=== PATIENT | male | born 1965 | race African-American/Black ===

== ENCOUNTER 2016-11-28 21:55 | Emergency (ER) | payer OTHER ==
[~2016-11-28] VITALS: Ht 185.4 cm; Wt 102.1 kg
[~2016-11-28 21:55] MED LIST: IBUPROFEN600 M1 PO; KEFLEX500 MG ORAL
[2016-11-28 22:22] VITALS: BP 174/109
[2016-11-28] MEDS ORDERED: IBUPROFEN600 MG ORAL (22:42)
[2016-11-28] MEDS ORDERED: AUGMENTIN 875-1 EAC1 ORAL (22:42)
--- NOTE | 2016-11-28 22:42 | Emergency Room Report ---
History of Present Illness General Chief Complaint: Skin Rash/Abscess Source: Patient Present Illness HPI This is a 51-year-old male with history hypertension. He presents with chief complaint of dental pain and facial swelling. He said there was some mild pain for last couple days but today her side of face swollen. No fever or chills. Pain is 7/10. No nausea no vomiting. Never had this problem before. Allergies: Coded Allergies: No Known Allergies (Unverified , 12/08/14) Patient History Past Medical History: see triage record, old chart reviewed, HTN Past Surgical History: other Pertinent Family History: none Social History: Reports: smoking Immunizations: other Reviewed Nursing Documentation: PMH: Agreed, PSxH: Agreed Nursing Documentation-PMH Hx Hypertension: Yes Review of Systems Eye: Denies: blurred vision, eye pain ENT: Denies: ear pain, nose congestion, throat swelling Respiratory: Denies: cough, shortness of breath Cardiovascular: Denies: chest pain, palpitations Gastrointestinal: Denies: abdominal pain, diarrhea, nausea, vomiting Musculoskeletal: Denies: back pain, joint pain Skin: Denies: rash Neurological: Denies: headache, numbness Endocrine: Denies: increased thirst, increased urine Hematologic/Lymphatic: Denies: easy bruising All Other Systems: negative except mentioned in HPI Physical Exam Vital Signs Date Time Temp Pulse Resp B/P Pulse Ox O2 Delivery O2 Flow Rate FiO2 11/28/16 22:15 98.2 90 18 174/109 96 Room Air vitals with hypertension Sp02 EP Interpretation: reviewed, normal General Appearance: well appearing, no apparent distress, alert Head: normocephalic, atraumatic Eyes: bilateral eye EOMI, bilateral eye PERRL ENT: hearing grossly normal, normal pharynx, other - Poor dentition with dental decay. Abscess to the right upper premolar and first molar. No trismus. Neck: full range of motion, supple, no meningismus Respiratory: chest non-tender, lungs clear, normal breath sounds Cardiovascular #1: regular rate, rhythm, no murmur Gastrointestinal: normal bowel sounds, non tender, no mass, no organomegaly, no bruit, non-distended Musculoskeletal: back normal, gait/station normal, normal range of motion Psychiatric: mood/affect normal Skin: warm/dry Procedures Incision and Drainage Incision and Drainage : Consent: Verbal Site: Dental Blade Size: 11 Anesthesia: 1% Lidocaine Volume Anesthetic (ccs): 1 Patient Tolerated: Well Complications: None Progress local anesthetic 1% lidocaine. Injected about 1 mL. using 11 blade scalpel, I made a 1 cm incision over the fluctuant area. there was a moderate amount of pus expressed. Patient tolerated procedure without a problem. Medical Decision Making Diagnostic Impression: Primary Impression: Dental abscess Additional Impression: Hypertension Qualified Codes: I10 - Essential (primary) hypertension ER Course Patient with a dental abscess. Blood pressure is elevated. No evidence of deep infection. He felt better now. Questionable drug abuse based on the appearance of his dentition. Last Vital Signs Date Time Temp Pulse Resp B/P Pulse Ox O2 Delivery O2 Flow Rate FiO2 11/28/16 22:15 98.2 90 18 174/109 96 Room Air Status: improved Disposition: HOME, SELF-CARE Condition: Stable Scripts Ibuprofen* (MOTRIN*) 600 Mg Tablet 600 MG ORAL THREE TIMES A DAY, #30 TAB 0 Refills Prov: TUAN KEY M.D. 11/28/16 Amoxicillin/Potassium Clav 875-125* (AUGMENTIN 875-125 TABLET*) 1 Each Tablet 1 TAB ORAL TWICE A DAY, #14 TAB Prov: TUAN KEY M.D. 11/28/16 Additional Instructions: See dentist MEHDI. Return for fever or increasing swelling. TUAN KEY M.D. Nov 28, 2016 22:42
[2016-11-28] MEDS ORDERED: Augmentin 875mg Tab ORAL ONE (22:45)
[2016-11-28 22:50] VITALS: BP 174/109
== END 2016-11-28 23:00 | disposition home or self-care (01) ==
LOC: EMR 22:52
DX: K04.7 Periapical abscess without sinus (principal); I10 Essential (primary) hypertension; F17.200 Nicotine dependence, unspecified, uncomplicated
CPT/HCPCS: 10060

== ENCOUNTER 2018-09-10 04:21 | Emergency (ER) | payer OTHER ==
[~2018-09-10] VITALS: Ht 185.4 cm; Wt 106.6 kg
[~2018-09-10 04:21] MED LIST changes: +AUGMENTIN 875-1 EAC1 ORAL; +IBUPROFEN600 MG ORAL
[2018-09-10] MEDS ORDERED: UNOBMED (04:30)
[2018-09-10 04:36] VITALS: BP 146/82
[2018-09-10] MEDS ORDERED: Tetanus/Diptheria/Pertussis IM ONE (04:45)
--- NOTE | 2018-09-10 05:13 | Diagnostic Imaging Report ---
EXAM: CT Head Without Intravenous Contrast CLINICAL HISTORY: H/A TECHNIQUE: Axial computed tomography images of the head/brain without intravenous contrast. CTDI is 70.53 mGy and DLP is 1432 mGy-cm. One or more of the following dose reduction techniques were used: automated exposure control, adjustment of the mA and/or kV according to patient size, use of iterative reconstruction technique. COMPARISON: 04/21/[address] FINDINGS: Brain: Unremarkable. No hemorrhage. No significant white matter disease. No edema. Ventricles: Unremarkable. No ventriculomegaly. Bones/joints: Unremarkable. No acute fracture. Soft tissues: Unremarkable. Sinuses: Right sphenoid sinus mucosal thickening. Mastoid air cells: Unremarkable as visualized. No mastoid effusion. IMPRESSION: No acute findings.
[2018-09-10] MEDS ORDERED: Lidocaine 1% Plain 30 ml INJ ONE (05:30)
[2018-09-10] MEDS ORDERED: Bacitracin Oint UD TOPIC ONE ×2 (05:43→05:45)
[2018-09-10] MEDS ORDERED: BACITRACIN15 GM TOPIC (05:46)
[2018-09-10 05:49] VITALS: BP 146/82
--- NOTE | 2018-09-10 21:58 | Emergency Room Report ---
History of Present Illness General Chief Complaint: Laceration Source: Patient Present Illness HPI 53-year-old male presents ED for evaluation. Patient states that he fell and hit his head this morning with possible loss of consciousness. States that he was very sleepy and fell in the kitchen hitting his head on the counter. Notes laceration above his left eyebrow. Tetanus unknown. Pain is dull, 6 out of 10 , nonradiating. Denies photophobia or blurry vision. Denies neck pain. Denies any other injuries. No other aggravating relieving factors. Denies any other associated symptoms Allergies: Coded Allergies: No Known Allergies (Unverified , 12/08/14) Patient History Past Medical History: HTN Past Surgical History: none Pertinent Family History: none Social History: Denies: smoking, alcohol use, drug use Immunizations: UTD Reviewed Nursing Documentation: PMH: Agreed; PSxH: Agreed Nursing Documentation-PMH Past Medical History: No History, Except For Hx Hypertension: Yes Review of Systems All Other Systems: negative except mentioned in HPI Physical Exam Vital Signs Date Time Temp Pulse Resp B/P (MAP) Pulse Ox O2 Delivery O2 Flow Rate FiO2 09/10/18 04:27 98.2 115 18 93 09/10/18 04:36 146/82 Sp02 EP Interpretation: reviewed, normal General Appearance: no apparent distress, alert, GCS 15, non-toxic Head: normocephalic, other - 2cm laceration above L eyebrow Eyes: bilateral eye normal inspection, bilateral eye PERRL, bilateral eye EOMI ENT: hearing grossly normal, normal pharynx, no angioedema, normal voice Neck: normal inspection Respiratory: normal inspection Cardiovascular #1: normal inspection Gastrointestinal: normal inspection Rectal: deferred Genitourinary: no CVA tenderness Musculoskeletal: normal inspection Neurologic: alert, oriented x3, responsive, front desk team member III-XII nml as tested, motor strength/tone normal, sensory intact, speech normal Psychiatric: normal inspection Skin: laceration - 2cm laceration above L eyebrow Lymphatic: normal inspection Procedures Laceration/Wound Repair Laceration/Wound Repair : Consent: Verbal Wound Location: head Wound's Depth, Shape: linear Wound Explored: clean Betadine Prep?: Yes Anesthesia: 1% Lidocaine Wound Debrided: minimal Wound Repaired With: sutures Suture Size/Type: 6:0, nylon Layer Closure?: No Sterile Dressing Applied?: Yes Splint Applied?: No Patient Tolerated: Well Complications: None Medical Decision Making Diagnostic Impression: Primary Impression: Head injury Qualified Codes: S09.90XA - Unspecified injury of head, initial encounter Additional Impression: Laceration ER Course Hospital Course 53 yo M presents to ED c/o laceration above L eyebrow. s/p fall with head injury Clinical course Patient placed on stretcher. After initial history and physical I ordered tetanus shot and CT head. CT head unremarkable Anesthesia provided with lidocaine. Laceration repaired w/o complication. Dressing applied. Discussed findings with patient. Safe for discharge with close outpatient follow-up. Wound care instructions given. Does not have a PMD. We'll provide referrals Diagnosis - head injury, laceration Stable and discharged to home with prescription for bacitracin. wound Care instructions given. Followup with PMD in 5-7 days for suture removal. Return to ED if any signs of infection develop CT/MRI/US Diagnostic Results CT/MRI/US Diagnostic Results : Imaging Test Ordered: CT Head Impression no acute process Last Vital Signs Date Time Temp Pulse Resp B/P (MAP) Pulse Ox O2 Delivery O2 Flow Rate FiO2 09/10/18 05:49 98.2 112 18 146/82 93 Status: improved Disposition: HOME, SELF-CARE Condition: Stable Scripts Bacitracin (Bacitracin) 28.4 Gm Oint...g. 1 APPLIC TOPIC THREE TIMES A DAY, #28.4 GM Prov: Sravan Dong MD 09/10/18 Referrals: [facility] Patient Instructions: Laceration Care, Adult Additional Instructions: return to ED in 5-7 days for suture removal Sravan Dong MD September 10, 2018 21:58
== END 2018-09-10 05:50 | disposition home or self-care (01) ==
LOC: EMR 04:53
DX: S01.112A Laceration without foreign body of left eyelid and periocular area, initial encounter (principal); I10 Essential (primary) hypertension; Z23 Encounter for immunization; W18.30XA Fall on same level, unspecified, initial encounter; Y92.000 Kitchen of unspecified non-institutional (private) residence as the place of occurrence of the external cause
CPT/HCPCS: 12011; 70450; 90471; 90715; 99284; J2001; Z7502

== ENCOUNTER 2019-04-23 13:30 | Emergency (ER) | payer OTHER ==
[~2019-04-23] VITALS: Ht 185.4 cm; Wt 115.2 kg
[~2019-04-23 13:30] MED LIST changes: +BACITRACIN15 GM TOPIC; +UNOBMED
[2019-04-23] MEDS ORDERED: [UNRECOGNIZED DRUG - REMARK] ORAL (13:40)
[2019-04-23] MEDS: Albuterol/Ipratropium 3ml neb HHN SCH ×4 (13:59→14:45)
[2019-04-23 14:23] LABS: BASOPHILS % (AUTO) 2.1 % (0.0-2.0); HEMATOCRIT 42.1 % (42.0-52.0); LYMPHOCYTES % (AUTO) 34.2 % (20.0-45.0); MEAN CORPUSCULAR VOLUME 86 FL (80-99); MONOCYTES % (AUTO) 12.7 % (1.0-10.0); PLATELET COUNT 271 K/UL (150-450); RED BLOOD COUNT 4.88 M/UL (4.70-6.10); RED CELL DISTRIBUTION WIDTH 12.3 % (11.6-14.8); WHITE BLOOD COUNT 7.6 K/UL (4.8-10.8)
[2019-04-23 14:29] VITALS: BP 131/86
[2019-04-23 14:30] LABS: INR 0.9 (0.9-1.1)
[2019-04-23 14:37] LABS: ANION GAP 10 mmol/L (5-15); BLOOD UREA NITROGEN 16 mg/dL (7-18); CARBON DIOXIDE 28 MMOL/L (21-32); CHLORIDE 103 MMOL/L (98-107); CREATININE 1.3 MG/DL (0.55-1.30); POTASSIUM 3.7 MMOL/L (3.5-5.1); SODIUM 141 MMOL/L (136-145)
[2019-04-23 14:48] LABS: ALANINE AMINOTRANSFERASE 32 U/L (12-78); ALBUMIN/GLOBULIN RATIO 1.3 (1.0-2.7); ALKALINE PHOSPHATASE 108 U/L (46-116); ASPARTATE AMINO TRANSFERASE 27 U/L (15-37); BILIRUBIN,TOTAL 0.7 MG/DL (0.2-1.0)
--- NOTE | 2019-04-23 15:11 | Emergency Room Report ---
History of Present Illness General Chief Complaint: Upper Respiratory Illness Source: Patient Present Illness HPI 54-year-old male with history of hypertension currently taking an unknown antihypertensive medication, heavy tobacco smoker, and alcohol consumption on daily basis here complaining of several months of shortness of breath and 1 week of worsening symptoms. 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 Complains of cough and congestion as well as wheezing and difficulty breathing. Denies abdominal pain, nausea vomiting, headache, dizziness, chest pain, pain radiation. Denies palpitation. Denies any history of cardiomegaly or CHF. Denies calf tenderness, recent traveling via airplane for prolonged hours, history of cancer, no other associated symptoms. Has not taken medication for symptom relief. Allergies: Coded Allergies: No Known Allergies (Unverified , 09/30/18) Patient History Past Medical History: see triage record Past Surgical History: none Pertinent Family History: none Social History: Reports: smoking - tobacco, alcohol use - alcohol daily Immunizations: UTD Reviewed Nursing Documentation: PMH: Agreed; PSxH: Agreed Nursing Documentation-PMH Past Medical History: No History, Except For Hx Hypertension: Yes Review of Systems All Other Systems: negative except mentioned in HPI Physical Exam Vital Signs Date Time Temp Pulse Resp B/P (MAP) Pulse Ox O2 Delivery O2 Flow Rate FiO2 04/23/19 13:35 97.9 86 15 131/86 (101) 93 Room Air 04/23/19 14:04 21 Sp02 EP Interpretation: reviewed, abnormal - Pulse ox 93% General Appearance: no apparent distress, alert, GCS 15, non-toxic Head: normocephalic, atraumatic Eyes: bilateral eye normal inspection, bilateral eye PERRL ENT: hearing grossly normal, normal pharynx, no angioedema, normal voice Neck: full range of motion, supple, supple/symm/no masses Respiratory: chest non-tender, no rhonchi, no respiratory distress, no retraction, crackles - Right and left left left lower lobe, speaking full sentences, wheezing - Diffuse wheezing Cardiovascular #1: regular rate, rhythm, no edema, no murmur Cardiovascular #2: 2+ carotid (R), 2+ carotid (L), 2+ radial (R), 2+ radial (L) , 2+ dorsalis pedis (R), 2+ dorsalis pedis (L) Gastrointestinal: normal bowel sounds, non tender, soft, non-distended, no guarding, no rebound Rectal: deferred Genitourinary: normal inspection, no CVA tenderness Musculoskeletal: back normal, normal range of motion, digits/nails normal, no calf tenderness Neurologic: alert, motor strength/tone normal, oriented x3, sensory intact, responsive, speech normal Psychiatric: normal inspection, judgement/insight normal Skin: no rash Lymphatic: no adenopathy Medical Decision Making PA Attestation Diagnosis and treatment plans were reviewed and discussed with my supervising physician Dr. Roque Diagnostic Impression: Primary Impression: Atypical pneumonia Additional Impression: Cardiomegaly ER Course 54-year-old male with history of hypertension currently taking an unknown antihypertensive medication, heavy tobacco smoker, and alcohol consumption on daily basis here complaining of several months of shortness of breath and 1 week of worsening symptoms. 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 Complains of cough and congestion as well as wheezing and difficulty breathing. Denies abdominal pain, nausea vomiting, headache, dizziness, chest pain, pain radiation. Denies palpitation. Denies any history of cardiomegaly or CHF. Denies calf tenderness, recent traveling via airplane for prolonged hours, history of cancer, no other associated symptoms. Has not taken medication for symptom relief. Ddx considered but are not limited to: bronchitis, PNA, URI viral, bacterial bronchitis, atypical pneumonia, CHF, cardiomegaly Vital signs: are WNL, pt. is afebrile H&PE are most consistent with: Atypical pneumonia, cardiomegaly ORDERS: Chest pain work-up, Augmentin, azithromycin, guaifenesin prednisone, albuterol, Lasix( as recommended by my supervising physician Dr. Roque) ED INTERVENTIONS:NS bolus, 3 treatments of albuterol ipratropium, prednisone DISCHARGE: At this time pt. is stable for d/c to home. Will provide printed patient care instructions, and any necessary prescriptions. Care plan and follow up instructions have been discussed with the patient prior to discharge. Patient to follow-up with primary care provider and lead ramp service man, if worsening symptoms return to emergency room. Also advised patient to stop drinking alcohol and tobacco smoke. EKG Diagnostic Results Rate: normal Rhythm: NSR ST Segments: no acute changes Other Impression No acute ST changes Chest X-Ray Diagnostic Results Chest X-Ray Diagnostic Results : Chest X-Ray Ordered: Yes # of Views/Limited/Complete: 1 View Indication: Shortness of Breath EP Interpretation: Yes HANS Xray: Interpretation reviewed, by supervising MD, and agrees with findings. Interpretation: other - LLL cosolidation, cardiomegaly Impression: Other - cardiomegaly, LLL consolidation Electronically Signed by: Mercy Morataya PA-C Last Vital Signs Date Time Temp Pulse Resp B/P (MAP) Pulse Ox O2 Delivery O2 Flow Rate FiO2 04/23/19 14:29 97.9 18 131/86 96 Room Air 21 04/23/19 14:05 88 86 Disposition: HOME, SELF-CARE Condition: Stable Scripts Guaifenesin* (GUAIFENESIN) 100 Mg/5 Ml Liquid 5 ML ORAL Q6H, #120 ML 0 Refills Prov: Mercy Paz 04/23/19 Furosemide* (LASIX*) 20 Mg Tablet 20 MG ORAL DAILY for 3 Days, #3 TAB Prov: Mercy Paz 04/23/19 Albuterol Sulfate (VENTOLIN HFA) 18 Gm Hfa.aer.ad 2 PUFFS INH EVERY 6 HOURS, #18 GM 0 Refills Prov: Mercy Paz 04/23/19 Prednisone* (PREDNISONE*) 20 Mg Tablet 40 MG ORAL DAILY for 5 Days, #10 TAB Prov: Mercy Paz 04/23/19 Amoxicillin/Potassium Clav 875-125* (AUGMENTIN 875-125 TABLET*) 1 Each Tablet 1 TAB ORAL TWICE A DAY for 10 Days, #20 TAB Prov: Mercy Paz 04/23/19 Azithromycin* (ZITHROMAX*) 250 Mg Tablet 250 MG ORAL DAILY, #6 TAB 0 Refills Take two tables once daily for 1 day, then one tablet once daily for 4 days. Prov: Mercy Paz 04/23/19 Referrals: NON PHYSICIAN (PCP) Patient Instructions: Community-Acquired Pneumonia, Adult, [id number] Additional Instructions: Follow-up with your primary care provider for referral to lead ramp service man regarding enlarged heart, avoid drinking alcohol, tobacco smoke. If worsening symptoms return to the emergency room Mercy Paz Apr 23, 2019 15:11
[2019-04-23] MEDS ORDERED: AUGMENTIN 875-1 EAC1 ORAL (15:13)
[2019-04-23] MEDS ORDERED: FUROSEMIDE20 M1 ORAL (15:13)
[2019-04-23] MEDS ORDERED: ZITHROMAX250 MG ORAL (15:13)
[2019-04-23] MEDS ORDERED: PREDNISONE20 MG ORAL (15:13)
[2019-04-23] MEDS ORDERED: GUAIFENESI100 MG/5 M ORAL (15:13)
[2019-04-23] MEDS ORDERED: VENTOLIN HFA18 GM INH (15:13)
[2019-04-23 15:25] VITALS: BP 129/85
--- NOTE | 2019-04-23 15:25 | NUR ---
ER DISCHARGE NOTE: Patient is cleared to be discharged per PA, pt is aox4, on room air, with stable vital signs. pt was given dc and prescription instructions, pt was able to verbalize understanding, pt id band and iv site removed without complications. pt is able to ambulate with steady gait. pt took all belongings and left with his family member.
[2019-04-23 15:26] LABS: APPEARANCE,URINE CLEAR; BILIRUBIN, URINE NEGATIVE (NEGATIVE); COLOR,URINE PALE YELLOW; GLUCOSE, URINE (UA) NEGATIVE (NEGATIVE); KETONES,URINE NEGATIVE (NEGATIVE); LEUKOCYTE ESTERASE ,URINE NEGATIVE (NEGATIVE); NITRITE,URINE NEGATIVE (NEGATIVE); PH,URINE 6.5 (4.5-8.0); PROTEIN,URINE NEGATIVE (NEGATIVE); UROBILINOGEN,URINE NORMAL MG/DL (0.0-1.0)
--- NOTE | 2019-04-24 08:33 | Diagnostic Imaging Report ---
Indication: Cough Technique: One view of the chest Comparison: 09/30/2018 Findings: Lungs and pleural spaces are clear. Heart size is normal. No significant interim change Impression: No acute process
== END 2019-04-23 15:25 | disposition home or self-care (01) ==
LOC: EMR 14:01
DX: J18.9 Pneumonia, unspecified organism (principal); I51.7 Cardiomegaly; I10 Essential (primary) hypertension; F17.200 Nicotine dependence, unspecified, uncomplicated
CPT/HCPCS: 36415; 71045; 80053; 80307; 81003; 83880; 84484; 85025; 85610; 85730; 93005; 96360; G0480; J7030; J7512; Z7502; 99284; J7620

== ENCOUNTER 2019-04-25 01:29 | Emergency (ER) | payer OTHER ==
[~2019-04-25] VITALS: Ht 185.4 cm; Wt 115.2 kg
[~2019-04-25 01:29] MED LIST changes: +FUROSEMIDE20 M1 ORAL; +GUAIFENESI100 MG/5 M ORAL; +PREDNISONE20 MG ORAL; +VENTOLIN HFA18 GM INH; +ZITHROMAX250 MG ORAL; +[UNRECOGNIZED DRUG - REMARK] ORAL
--- NOTE | 2019-04-25 01:43 | Emergency Room Report ---
History of Present Illness General Chief Complaint: Lower Extremity Injury Source: Patient Present Illness HPI Is a 54-year-old male with a history of previous left ankle surgery. He presents with left ankle pain and knee pain. He said he was running in the house and tripped and fell. He said he twisted his leg. He complained of left ankle and left knee pain. Onset was about 2 hours ago. Pain is localized to the medial aspect the knee and ankle. Pain is 9 out of 10. Unable to bear weight. Unable to walk. Better with rest. Worse with ambulation. No other injury. Did not hit his head. Did not pass out. Allergies: Coded Allergies: No Known Allergies (Unverified , 09/30/18) Patient History Past Medical History: see triage record, old chart reviewed, HTN Past Surgical History: other Pertinent Family History: none Social History: Denies: smoking Immunizations: other Reviewed Nursing Documentation: PMH: Agreed; PSxH: Agreed Nursing Documentation-PMH Hx Hypertension: Yes Review of Systems Eye: Denies: eye pain, blurred vision ENT: Denies: ear pain, nose congestion, throat swelling Respiratory: Denies: cough, shortness of breath Cardiovascular: Denies: chest pain, palpitations Gastrointestinal: Denies: abdominal pain, diarrhea, nausea, vomiting Musculoskeletal: Reports: joint pain; Denies: back pain Skin: Denies: rash Neurological: Denies: headache, numbness Endocrine: Denies: increased thirst, increased urine Hematologic/Lymphatic: Denies: easy bruising All Other Systems: negative except mentioned in HPI Physical Exam Vital Signs Date Time Temp Pulse Resp B/P (MAP) Pulse Ox O2 Delivery O2 Flow Rate FiO2 04/25/19 01:36 97.9 90 18 142/88 (106) 99 Room Air Vitals with high blood pressure Sp02 EP Interpretation: reviewed, normal General Appearance: well appearing, no apparent distress, alert Head: normocephalic, atraumatic Eyes: bilateral eye PERRL, bilateral eye EOMI ENT: hearing grossly normal, normal pharynx Neck: full range of motion, supple, no meningismus Respiratory: chest non-tender, lungs clear, normal breath sounds Cardiovascular #1: regular rate, rhythm, no murmur Gastrointestinal: normal bowel sounds, non tender, no mass, no organomegaly, no bruit, non-distended Musculoskeletal: back normal, normal range of motion, gait/station normal, tender - Left lower extremity: There is tenderness to the medial aspect of the left knee and left ankle. Knee is stable. Ankle stable. No deformity. Psychiatric: mood/affect normal Procedures Splinting Splinting : Consent: Verbal Location: ankle Pre-Made Type: SHEEBA wrap Pre-Proc Neuro Vasc Exam: normal Post-Proc Neuro Vasc Exam: normal Patient Tolerated: Well Complications: None Medical Decision Making Diagnostic Impression: Primary Impression: Left ankle sprain Qualified Codes: S93.402A - Sprain of unspecified ligament of left ankle, initial encounter Additional Impression: Left knee sprain Qualified Codes: S83.412A - Sprain of medial collateral ligament of left knee , initial encounter ER Course Patient presents with ankle and knee sprain status post fall. No new fracture. Will discharge home. Other X-Ray Diagnostic Results Other X-Ray Diagnostic Results #1: X-Ray ordered: left ankle xrays # of Views/Limited Vs Complete: 3 View Indication: Pain EP Interpretation: Yes Interpretation: no dislocation, no soft tissue swelling, no fractures, other - s/p hardware Impression: No acute disease Electronically Signed by: Alexy Gray MD Other X-Ray Diagnostic Results #2: X-Ray ordered: Left knee x-rays # of Views/Limited Vs Complete: 4 View Indication: Pain EP Interpretation: Yes Interpretation: no dislocation, no soft tissue swelling, no fractures Impression: No acute disease Electronically Signed by: Alexy Gray MD Last Vital Signs Date Time Temp Pulse Resp B/P (MAP) Pulse Ox O2 Delivery O2 Flow Rate FiO2 04/25/19 01:36 97.9 90 18 142/88 (106) 99 Room Air Status: improved Disposition: HOME, SELF-CARE Condition: Stable Scripts Ibuprofen* (MOTRIN*) 600 Mg Tablet 600 MG ORAL THREE TIMES A DAY, #30 TAB 0 Refills Prov: Alexy Gray MD 04/25/19 Referrals: [facility],REFERR[facility] (PCP) Patient Instructions: Ankle Sprain Additional Instructions: Elevate ankle. Ice pack to the area. Use crutches as needed. Follow-up with your doctor in 7 days. Return if worse. Alexy Gray MD Apr 25, 2019 01:43
[2019-04-25] MEDS ORDERED: HYDROcodone/Acetamin 5/325 tab ORAL ONE (01:45)
[2019-04-25] MEDS ORDERED: IBUPROFEN600 MG ORAL (02:30)
[2019-04-25 02:32] VITALS: BP 140/88
--- NOTE | 2019-04-25 16:51 | Diagnostic Imaging Report ---
Indication: Trauma, pain in left ankle after twisting a few hours ago Technique: 3 views of the left ankle Comparison: 04/21/2010 Findings: Interim surgical repair of previously demonstrated medial malleolar and distal fibular fracture. A small fragment of bone at the tip of the medial malleolus is ununited. The hardware appears intact. Impression: Postsurgical and posttraumatic changes, as described Age-indeterminate fracture of the tip of the medial malleolus. Correlate with clinical findings.
--- NOTE | 2019-04-25 17:02 | Diagnostic Imaging Report ---
Indication: Left knee pain after twisting a few hours ago Technique: 4 views of the left knee Comparison: None Findings: Surgical hardware is seen in the femur. No acute fractures. No dislocations. The joint spaces are preserved. No suprapatellar effusion Impression: No acute bony trauma
== END 2019-04-25 02:32 | disposition home or self-care (01) ==
LOC: EMR 01:39
DX: S93.402A Sprain of unspecified ligament of left ankle, initial encounter (principal); S83.412A Sprain of medial collateral ligament of left knee, initial encounter; I10 Essential (primary) hypertension; W01.0XXA Fall on same level from slipping, tripping and stumbling without subsequent striking against object, initial encounter; Y92.9 Unspecified place or not applicable
CPT/HCPCS: 73562; 73610; Z7502; 99284

== ENCOUNTER 2019-09-30 01:54 | Emergency (ER) | payer OTHER ==
[~2019-09-30] VITALS: Ht 185.4 cm; Wt 108.9 kg
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
[2019-09-30] MEDS ORDERED: Albuterol ud Inhalation HHN ONE (02:00)
[2019-09-30] MEDS ORDERED: Ipratropium 0.02% Inh Soln 2.5ml UD HHN ONE (02:00)
[2019-09-30 02:06] VITALS: BP 139/99
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
--- NOTE | 2019-09-30 02:07 | NUR ---
ED Nurse Note: EKG performed by MOTORCYCLE REPAIRER
--- NOTE | 2019-09-30 02:15 | NUR ---
ED Nurse Note: IV line initiated, blood drawn. UA and blood sent to lab.
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
--- NOTE | 2019-09-30 02:20 | NUR ---
ED Nurse Note: Xray at bedside
--- NOTE | 2019-09-30 02:30 | NUR ---
ED Nurse Note: IV fluids running, pt tolerated well. no ss of distress noted.
[2019-09-30 02:31] LABS: APPEARANCE,URINE CLEAR; BILIRUBIN, URINE NEGATIVE (NEGATIVE); COLOR,URINE PALE YELLOW; EOSINOPHILS % (AUTO) 3.7 % (0.0-3.0); GLUCOSE, URINE (UA) NEGATIVE (NEGATIVE); HEMATOCRIT 49.3 % (42.0-52.0); HEMOGLOBIN 16.6 G/DL (14.2-18.0); KETONES,URINE NEGATIVE (NEGATIVE); LEUKOCYTE ESTERASE ,URINE NEGATIVE (NEGATIVE); LYMPHOCYTES % (AUTO) 40.4 % (20.0-45.0); MEAN CORPUSCULAR VOLUME 83 FL (80-99); MONOCYTES % (AUTO) 6.3 % (1.0-10.0); NEUTROPHILS % (AUTO) 47.6 % (45.0-75.0); NITRITE,URINE NEGATIVE (NEGATIVE); PH,URINE 5 (4.5-8.0); PLATELET COUNT 359 K/UL (150-450); PROTEIN,URINE NEGATIVE (NEGATIVE); RED BLOOD COUNT 5.96 M/UL (4.70-6.10); RED CELL DISTRIBUTION WIDTH 12.3 % (11.6-14.8); UROBILINOGEN,URINE NORMAL MG/DL (0.0-1.0)
[2019-09-30 02:45] LABS: ANION GAP 16 mmol/L (5-15); BLOOD UREA NITROGEN 8 mg/dL (7-18); CALCIUM 9.6 MG/DL (8.5-10.1); CARBON DIOXIDE 26 MMOL/L (21-32); CHLORIDE 100 MMOL/L (98-107); CREATININE 1.4 MG/DL (0.55-1.30); POTASSIUM 3.5 MMOL/L (3.5-5.1); SODIUM 142 MMOL/L (136-145)
[2019-09-30 02:57] LABS: ALANINE AMINOTRANSFERASE 46 U/L (12-78); ALBUMIN 4.7 G/DL (3.4-5.0); ALBUMIN/GLOBULIN RATIO 1.1 (1.0-2.7); ALKALINE PHOSPHATASE 130 U/L (46-116); ASPARTATE AMINO TRANSFERASE 34 U/L (15-37); BILIRUBIN,TOTAL 0.4 MG/DL (0.2-1.0)
--- NOTE | 2019-09-30 03:20 | NUR ---
ED Nurse Note: ERMD at bedside
[2019-09-30] MEDS ORDERED: PREDNISONE50 MG ORAL (03:22)
[2019-09-30] MEDS ORDERED: ALBUTEROL SULF8.5 G1 INH (03:22)
[2019-09-30 03:31] VITALS: BP 126/87
--- NOTE | 2019-09-30 03:31 | NUR ---
ER DISCHARGE NOTE: Patient is cleared to be discharged home per ERMD, pt is aox4, 99% on room air, with stable vital signs. pt was given dc and prescription instructions, pt was able to verbalize understanding, pt id band and iv site removed without complications. pt is able to ambulate with steady gait. pt took all belongings.
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
== END 2019-09-30 03:31 | disposition home or self-care (01) ==
LOC: EMR 02:15
DX: F10.129 Alcohol abuse with intoxication, unspecified (principal); J20.9 Acute bronchitis, unspecified; F17.200 Nicotine dependence, unspecified, uncomplicated; I10 Essential (primary) hypertension
CPT/HCPCS: 36415; 71045; 80053; 80307; 81003; 83690; 84484; 85025; 93005; 96360; G0480; J7030; Z7502; 99284

== ENCOUNTER 2020-02-16 20:15 | Emergency (ER) | payer OTHER ==
[~2020-02-16] VITALS: Ht 188 cm; Wt 123.4 kg
[~2020-02-16 20:15] MED LIST changes: +ALBUTEROL SULF8.5 G1 INH; +PREDNISONE50 MG ORAL
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
--- NOTE | 2020-02-16 20:34 | NUR ---
ED Nurse Note: [employer] is bedside.
[2020-02-16] MEDS ORDERED: NORCO 7.5-3251 EACH ORAL (20:48)
[2020-02-16] MEDS ORDERED: IBUPROFEN600 M1 ORAL (20:48)
[2020-02-16] MEDS ORDERED: HYDROcodone/Acetamin 10/325 tab ORAL ONE (21:00)
--- NOTE | 2020-02-16 21:00 | NUR ---
ED Nurse Note: Splint applied to L leg. Patient provided with crutches. Return demonstration noted, pt able to use crutches properly.
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
[2020-02-16 21:40] VITALS: BP 135/85
--- NOTE | 2020-02-16 21:40 | NUR ---
ER DISCHARGE NOTE: Patient is cleared to be discharged per ERMD, pt is aox4, on room air, with stable vital signs. pt was given dc and prescription instructions, pt was able to verbalize understanding, pt id band removed. pt is able to ambulate with steady gait with crutches. pt took all belongings.
== END 2020-02-16 21:40 | disposition home or self-care (01) ==
LOC: EDBD 20:15 → EMR 20:30
DX: S82.202A Unspecified fracture of shaft of left tibia, initial encounter for closed fracture (principal); X50.1XXA Overexertion from prolonged static or awkward postures, initial encounter; Y92.9 Unspecified place or not applicable; I10 Essential (primary) hypertension; E11.9 Type 2 diabetes mellitus without complications
CPT/HCPCS: 29515; 73590; 73610; Z7502; 99284